=== PATIENT | female | born 1995 ===

== ENCOUNTER 2016-09-28 20:01 | Emergency (ER) | payer OTHER ==
[~2016-09-28] VITALS: Ht 157.5 cm; Wt 52.2 kg
[2016-09-28] MEDS ORDERED: BACTRIM DS TAB1 EACH PO (22:07)
--- NOTE | 2016-09-28 22:09 | ED GI/GU/ABDOMINAL COMPLAINT ---
History of Present Illness General Chief Complaint: Abdominal Pain/Flank Pain Stated Complaint: PT IS HAVING BACK & ABDOMINAL Source: patient, Exam Limitations: no limitations Vital Signs & Intake/Output Vital Signs & Intake/Output Vital Signs Date Time Temp Pulse Resp B/P B/P Pulse O2 O2 Flow FiO2 Mean Ox Delivery Rate 09/29 2007 98.5 88 18 111/76 100 Room Air Allergies Coded Allergies: chlorhexidine (ITCHY, HIVES 09/28/16) Reconcile Medications Sulfamethoxazole/Trimethoprim (Bactrim Ds Tablet) 800 MG-160 MG TABLET 1 TAB PO BID urine infection Triage Note: ABDOMINAL AND LOWER BACK PAIN. ALSO REPORTS HEMATURIA AND BURNING WITH URINATION. THIS BEGAN AT 1300 HRS TODAY. Triage Nurses Notes Reviewed? yes ? n Is pt currently ? No HPI: Patient presents for evaluation of moderate to severe suprapubic abdominal pain that began about 1:00 today. Patient states she was at work and has had a constant cramping pain in the suprapubic region since onset. She also states that she feels like she has to go to urinate constantly but when she tries she can't. In addition she states she has been experiencing a bilateral low back pain for the past week the gets worse with movement. Her last menstrual period was about 10 days ago. Past History Travel History Traveled to [place] past 21 day No Medical History Any Pertinent Medical History? none History of CDIFF: No Surgical History Surgical History: non-contributory Psychosocial History What is your primary language Micronesian Tobacco Use: Never used Family History Hx Contributory? No Review of Systems Review of Systems Constitutional: Reports: no symptoms. EENTM: Reports: no symptoms. Respiratory: Reports: no symptoms. Cardiovascular: Reports: no symptoms. GI: Reports: no symptoms. Genitourinary: Reports: see HPI. Musculoskeletal: Reports: no symptoms. Skin: Reports: no symptoms. Neurological/Psychological: Reports: no symptoms. Hematologic/Endocrine: Reports: no symptoms. Immunologic/Allergic: Reports: no symptoms. All Other Systems: Reviewed and Negative Physical Exam Physical Exam Gastrointestinal: see below Comments: Gen.: Well-nourished, well-developed, no acute respiratory distress. Head: Normocephalic, atraumatic. Eyes: Normal inspection bilaterally Ears: Normal inspection bilaterally Nose: Normal inspection Throat/mouth : Moist mucosa Neck: Supple, full range of motion, no goiter Heart: Regular rate and rhythm, no murmurs rubs or gallops Lungs: Clear to auscultation bilaterally with normal air entry Chest: Nontender Back: Normal range of motion, tenderness over the right lumbosacral region, no CVAT Abdomen: Soft, suprapubic tenderness with brief voluntary guarding but no rebound, nondistended, normal bowel sounds Extremities: Normal range of motion grossly, equal radial pulses, no cyanosis clubbing or edema Neurologic: Cranial nerves grossly intact, speech is clear Skin: warm and dry Psychiatric: Calm, cooperative, no apparent delusions or hallucinations Core Measures ACS in differential dx? No Severe Sepsis Present: No Septic Shock Present: No Progress Differential Diagnosis: UTI/pyelo Plan of Care: Orders Procedure Date/time Status URINALYSIS 09/28 2008 Complete Laboratory Tests 09/28/16 2103: Urine Color PINK H, Urine Clarity HAZY H, Urine pH 6.5, Ur Specific [place] 1.025, Urine Protein 100 H, Urine Ketones NEG, Urine Nitrite NEG, Urine Bilirubin NEG, Urine Urobilinogen 0.2, Ur Leukocyte Esterase SMALL H, Ur Microscopic SEDIMENT EXAMINED, Urine RBC >75 H, Urine WBC 10-15 H, Ur Epithelial Cells MOD H, Urine Bacteria FEW H, Urine Mucus FEW, Urine Hemoglobin LARGE H, Urine Glucose NEG Initial ED EKG: none Comments: Patient's back pain is bilateral and proceeded the onset her Urinary signs and symptoms. She has no costovertebral angle tenderness to percussion. I doubt pyelonephritis. Given that the back pain is bilateral I doubt renal colic. Plan treatment for lower urinary tract infection. Departure Departure Disposition: HOME OR SELF CARE Condition: Stable Clinical Impression Primary Impression: UTI (urinary tract infection) Qualifiers: Urinary tract infection type: acute cystitis Hematuria presence: with hematuria Qualified Code: N30.01 - Acute cystitis with hematuria Secondary Impressions: Back pain Qualifiers: Back pain location: low back pain Chronicity: acute Back pain laterality: bilateral Sciatica presence: without sciatica Qualified Code: M54.5 - Low back pain Referrals: [facility] CAPELLAN,TRANG Torres (PCP/Family) Additional Instructions: Bactrim as prescribed for the urinary tract infection. Pyridium as prescribed for the pain. You may also add ibuprofen 600 mg every 6 hours if needed for pain. Follow-up with your primary care doctor in 5 days if not improved. Return if any concerns or sudden worsening. Thank you for choosing the [facility] for your care. It was a pleasure to serve you today. Aureliano Arellano M.D. [facility] Departure Forms: Customer Survey General Discharge Information Prescriptions: Current Visit Scripts Sulfamethoxazole/Trimethoprim (Bactrim Ds Tablet) 1 TAB PO BID #14 TAB
[2016-09-28 22:16] VITALS: BP 112/80
== END 2016-09-28 22:17 ==
LOC: ERH 20:01
DX: N39.0 Urinary tract infection, site not specified (principal); M54.5 Low back pain
CPT/HCPCS: 81001